=== PATIENT | female | born 1995 | race Caucasian/White ===

== ENCOUNTER 2018-01-25 21:17 | Emergency (ER) | payer SELFPAY ==
[~2018-01-25] VITALS: Ht 172.7 cm; Wt 72.6 kg
[2018-01-25 21:33] VITALS: BP_SYST 123; BP_SYST 129; BP_DIAS 70
--- NOTE | 2018-01-25 21:36 | NUR ---
PT AMBULATED TO LOBBY WITH VSS. PROVIDING URINE.
--- NOTE | 2018-01-25 22:08 | NUR ---
PT AMBULATED TO BED 3 W/ STEADY GAIT FROM [facility].
--- NOTE | 2018-01-25 22:08 | NUR ---
PT PRESENTED ER WITH PAIN TO THE LEFT SIDE OF VAGINA BARTHOLIN GLAND FOR 1 MONTH. PT STATED SHE HAS HAD A CYST/ BARTHOLIN GLAND BEFORE AND THIS ONE NEEDS TO BE DRAINED. PT STATED THAT THE PAIN IS LEVEL 6/10 AND IS THROBBING. PT HAS NO ALLERGIES AND NO PREVIOUS MEDICAL HX. PT IS A/O X4. DENIES N/V/D; SKIN IS PINK/WARM/DRY; AAOX4 WITH EVEN AND STEADY GAITPT DENIES FEVER AT TIS TIME; VSS; PATIENT POSITIONED FOR COMFORT; HOB ELEVATED; BEDRAILS UP X2; BED DOWN. ER MD MADE AWARE OF PT STATUS.
--- NOTE | 2018-01-25 23:10 | NUR ---
PT STATED SHE DID NOT WANT TO GET AN ULTRASOUND OR WORK UP FOR . SHE MAY NOT KEEP THE BABY (MAY TERMINATE PER PT) AND IT WAS TOO EMOTIONAL TO DEAL WITH THE TESTS AND THEIR OUTCOME. PT REQUESTED TO LEAVE AMA. MADE AWARE OF STATUS.
--- NOTE | 2018-01-25 23:15 | NUR ---
Patient does not wish to proceed with medical care recommended by Dr. Abel. Patient given information related to possible complications, up to and including , which could occur as a result of leaving hospital at this time. Patient verbalizes understanding of risks involved leaving against medical advice. Patient has signed AMA form.vitals stable prior to AMA.
--- NOTE | 2018-01-25 23:15 | NUR ---
AT PT BEDSIDE
== END 2018-01-25 23:15 | disposition left against medical advice (07) ==
LOC: MED 21:17
DX: N76.89 Other specified inflammation of vagina and vulva (principal)
CPT/HCPCS: 81002; 81025; 99282

== ENCOUNTER 2023-05-23 06:07 | Inpatient (IN) | payer BC ==
[~2023-05-23] VITALS: Ht 172.7 cm; Wt 77.1 kg
[2023-05-23 06:12] VITALS: BP 111/68; PULSE 78; RESP 16; TEMP 97.3; O2SAT 98
[2023-05-23] MEDS ORDERED: ONDANSETRON 4 MG/2 ML VIAL ONE ×2 (06:44→15:18)
[2023-05-23] MEDS ORDERED: ONDANSETRON 4 MG ODT PO ONE (06:45)
[2023-05-23] MEDS: ONDANSETRON 4 MG/2 ML VIAL IVP ONE (07:00)
[2023-05-23 07:05] LABS: BASOPHILS % (AUTO) 0.4 % (0.0-2.0); EOSINOPHILS % (AUTO) 0.2 % (0.0-4.0); HEMATOCRIT 37.7 % (36-48); HEMOGLOBIN 12.9 g/dL (12.0-16.0); LYMPHOCYTES # (AUTO) 0.8 K/uL (2.5-16.5); MEAN CORPUSCULAR HEMOGLOBIN 31 pg (27-31); MEAN CORPUSCULAR HGB CONC 34 g/dL (33-37); MEAN CORPUSCULAR VOLUME 91.4 fL (80-94); MONOCYTES # (AUTO) 0.3 K/uL (0.8-1.0); MONOCYTES % (AUTO) 6.1 % (1.7-9.3); NEUTROPHILS # (AUTO) 3.3 K/uL (1.8-7.7); NEUTROPHILS % (AUTO) 74.3 % (42.2-75.2); PLATELET COUNT (AUTO) 184 K/uL (140-450); RED BLOOD CELL COUNT(AUTO) 4.12 MIL/uL (4.20-5.40); RED CELL DISTRIBUTION WIDTH 12.6 % (11.6-13.7); WHITE BLOOD COUNT (AUTO) 4.4 K/uL (4.8-10.8)
[2023-05-23 07:17] LABS: APPEARANCE,URINE SL CLOUDY (CLEAR); BILIRUBIN,URINE NEGATIVE (NEGATIVE); BLOOD, URINE 3+ (NEGATIVE); COLOR,URINE STRAW (YELLOW); LEUKOCYTE ESTERASE ,URINE TRACE (NEGATIVE); NITRITE, URINE NEGATIVE (NEGATIVE); PH,URINE 6.5 (5.0-9.0); PROTEIN,URINE NEGATIVE (NEGATIVE); UGLUCOSE NEGATIVE (NEGATIVE); UROBILINOGEN,URINE 0.2 EU/dL (0.2 - 1)
[2023-05-23 07:34] LABS: BACTERIA,URINE FEW /HPF (None Seen); RBC,URINE 20-50 /HPF (0-5); SQUAMOUS EPITHELIAL CELL,UR 4-10 (MOD) /LPF (0-3 (FEW)); WBC,URINE 0-5 /HPF (0-5)
[2023-05-23] MEDS: ACETAMINOPHEN 325 MG TAB PO ONE (07:40)
[2023-05-23] MEDS: NACL 0.9% 1,000 ML IV ONE (07:41)
[2023-05-23] MEDS ORDERED: LORazepam 1 MG TAB PO PRN (09:35)
[2023-05-23] MEDS ORDERED: ACETAMINOPHEN 325 MG TAB PO PRN (09:35)
[2023-05-23] MEDS: NACL 0.9% 1,000 ML IV SCH (10:07)
[2023-05-23 10:34] LABS: FLU A ANTIGEN negative (NEGATIVE); FLU B ANTIGEN negative (NEGATIVE)
[2023-05-23 12:38] VITALS: PULSE 68; RESP 20; O2SAT 99
[2023-05-23] MEDS ORDERED: PROPOFOL 200 MG/20 ML VIAL IV ONE (13:54)
[2023-05-23] MEDS ORDERED: fentaNYL citrate 0.05 MG/ML VIAL ONE (13:54)
[2023-05-23] MEDS ORDERED: SEVOFLURANE 250 ML BTL INH ONE (14:40)
[2023-05-23] MEDS ORDERED: ePHEDrine 50 MG/ML VIAL IV ONE (14:40)
[2023-05-23] MEDS ORDERED: DEXAMETHASONE 4 MG/ML VIAL ONE ×2 (15:18)
[2023-05-23] MEDS ORDERED: KETOROLAC 30 MG/ML VIAL ONE (15:47)
[2023-05-23] MEDS: KETOROLAC 30 MG/ML VIAL IVP ONE (15:53)
[2023-05-23 16:00] VITALS: BP 125/65; PULSE 68; RESP 20; TEMP 98.1; O2SAT 99
[2023-05-23] MEDS ORDERED: MEPERIDINE 25 MG/ML SYR ONE ×2 (16:07→16:24)
[2023-05-23] MEDS ORDERED: MEPERIDINE 25 MG/ML SYR IVP PRN (16:10)
[2023-05-23] MEDS: MEPERIDINE 25 MG/ML SYR IVP PRN (16:10)
[2023-05-23] MEDS ORDERED: oxyCODONE/APAP 5/325 MG 1 TAB TAB PO PRN (16:10)
[2023-05-23] MEDS: ONDANSETRON 4 MG/2 ML VIAL IVP PRN (16:25)
[2023-05-23 20:00] VITALS: BP 107/67; PULSE 68; RESP 20; TEMP 97.1; O2SAT 97
[2023-05-23] MEDS: HYDROcodone/APAP 5/325 MG 1 TAB TAB PO PRN (20:09)
[2023-05-23] MEDS: ZOLPIDEM 5 MG TAB PO PRN (23:01)
[2023-05-24 04:00] VITALS: BP 105/70; PULSE 72; RESP 18; TEMP 97; O2SAT 99
[2023-05-24 07:23] LABS: INR 1.16 (0.8-1.2); PARTIAL THROMBOPLASTIN TIME 24.6 secs (22-35.6); PROTHROMBIN TIME 12.1 secs (10.8-13.4)
[2023-05-24 07:24] LABS: BASOPHILS % (AUTO) 0.2 % (0.0-2.0); LYMPHOCYTES # (AUTO) 0.9 K/uL (2.5-16.5); LYMPHOCYTES % (AUTO) 20.1 % (20.5-51.1); MEAN CORPUSCULAR HEMOGLOBIN 32 pg (27-31); MEAN CORPUSCULAR HGB CONC 34 g/dL (33-37); MEAN CORPUSCULAR VOLUME 91.7 fL (80-94); MONOCYTES # (AUTO) 0.3 K/uL (0.8-1.0); MONOCYTES % (AUTO) 6.3 % (1.7-9.3); NEUTROPHILS # (AUTO) 3.3 K/uL (1.8-7.7); NEUTROPHILS % (AUTO) 73.4 % (42.2-75.2); PLATELET COUNT (AUTO) 200 K/uL (140-450); RED BLOOD CELL COUNT(AUTO) 3.82 MIL/uL (4.20-5.40); RED CELL DISTRIBUTION WIDTH 12.4 % (11.6-13.7); WHITE BLOOD COUNT (AUTO) 4.4 K/uL (4.8-10.8)
[2023-05-24 07:36] LABS: ANION GAP 13.2 (8-16); CALCIUM 7.9 mg/dL (8.5-10.1); CARBON DIOXIDE 24.1 mmol/L (21-32); CREATININE 0.5 mg/dL (0.6-1.3); POTASSIUM 4.3 mmol/L (3.5-5.1); TOTAL BILIRUBIN 0.4 mg/dL (0.0-1.0); TOTAL PROTEIN, SERUM 6.9 g/dL (6.4-8.2)
[2023-05-24 08:00] VITALS: BP 108/71; PULSE 72; PULSE 74; RESP 18; TEMP 97.2; O2SAT 99
[2023-05-24] MEDS: DOCUSATE SODIUM 100 MG GELCAP PO SCH (08:37)
[2023-05-24] MEDS ORDERED: ACET-1182 PO (09:58)
[2023-05-24 11:21] VITALS: BP 109/65; PULSE 71; RESP 19; TEMP 97.6
== END 2023-05-24 11:45 | disposition home or self-care (01) | DRG 770 ==
LOC: MED 06:07 → MTU 09:36 → MMU 09:36 → MTU 10:28
PROVIDERS: ADMIT Student in an Organized Health Care Education/Training Program; ATTEND Student in an Organized Health Care Education/Training Program
PROC: 10D17ZZ Extraction of Products of Conception, Retained, Via Natural or Artificial Opening (ICD-10-PCS; principal; 2023-05-23 13:30)
DX: O03.4 Incomplete spontaneous abortion without complication (principal); Z20.822 Contact with and (suspected) exposure to COVID-19
CPT/HCPCS: 36415; 76830; 80053; 81001; 84702; 85025; 85610; 85730; 86900; 86901; 87081; 88305; 96361; 96374; 99285; J1100; J1885; J2175; J2405; J2704; J3010; J7120; Q0092